=== PATIENT | female | born 1990 | race Caucasian/White ===

== ENCOUNTER 2025-01-21 13:12 | Outpatient (AMB) | payer BC, SELFPAY ==
--- NOTE | 2025-01-21 13:15 | A.OFFPC_ITS ---
Vital Signs 01/21/25 13:19 Height 5 ft 6.61 in Weight 180 lb 8 oz BMI 28.6 BP 110/80 Blood Pressure Location Lt brachial Position Sitting Respiration 12 Pulse 91 Pulse Source Pulse Oximeter Temp 98.3 F Temp Source Oral Pulse Oximetry (%) 98 Oxygen Delivery Method Room Air Intake Visit Reasons: New Patient Intake Note: New patient visit. Allergies No Known Allergies Allergy (Verified 01/21/25 13:15) Medication List - Last Reconciled 01/21/25 by Amaris Pat PA-C No Known Home Meds Tobacco use date assessed: 01/21/25 Dental Screening Dental Screen Date: 01/21/25 Did you have a dental visit in the last 12 months?: Yes Did you have a dental problem in the last 6 months where you did not have access to dental care?: No Was dental information given to patient?: Patient has dentist HPI New Patient HPI Details Patient is a 35-year-old female who presents today to reestablish care/physical exam. She has not been seen in a few years. She has a significant past medical history of generalized anxiety. She does report a few concerns today. Neuro: She states that she has a history of headaches but over the last year or so they have been more persistent. She says that they are almost every day. Denies any vision changes with this but is getting concerned because at times she is getting numbness and tingling in her hands and feet. She states sometimes the paresthesias will happen with headaches and sometimes without this. She states with the numbness and tingling she does get muscle weakness. She states that recently is felt like it has been in her upper extremities. This comes and goes. It will be on and off for a day. She states that she thinks it is possibly anxiety but she is worried about it because her friend just got diagnosed with aggressive ALS. She says that they work together for years and had the same sort of environmental exposures. She does have a 3-month -old baby at home and does carry her baby and her toddler who is 18 months around a lot. She states she wonders if it is related to that and mostly in her head. She is not having any neck pain or low back pain. It does not feel like it radiates down. CV: Blood pressure today in the office is 110/80. She states that yesterday she had an episode of chest pain that came and went throughout the day. States that it felt like a discomfort or tightness. She tells me it got better when she was at the museum with her family. When she was walking around it seemed to be better. She does not have any acid reflux. She states that again she thinks it could be related to anxiety but she is not sure. She did not feel dizzy or lightheaded with this. No nausea, palpitations. Enterprise Sales Person: Up-to-date Family history: Maternal grandmother breast cancer at the age of 50 [facility] Family History (Updated 01/21/25 @ 13:18 by Victoria Lieberman [facility]) Father Anxiety Alcoholism Diabetes Maternal Grandmother Brain aneurysm Other Substance abuse Social History Housing: House Patient Tobacco Use Status: Never used Tobacco e-Cigarette/Vaping Use: Never Used Second Hand Smoke Exposure: No service: No Current occupational status: employed Current occupation: [employer] Current occupational exposures/hazards: No Cognitive needs: No Hearing needs: No Vision needs: No Questionnaire PHQ-9 Over the last 2 weeks, how often have you been bothered by any of the following problems? 1. Little interest or pleasure in doing things: not at all 2. Feeling down, depressed, or hopeless: not at all 3. Trouble falling or staying asleep, or sleeping too much: not at all 4. Feeling tired or having little energy: not at all 5. Poor appetite or overeating: not at all 6. Feeling bad about yourself - or that you are a failure or have let yourself or your family down: not at all 7. Trouble concentrating on things, such as reading the newspaper or watching television: not at all 8. Moving or speaking so slowly that other people could have noticed. Or the opposite - being so fidgety or restless that you have been moving around a lot more than usual: not at all 9. Thoughts that you would be better off or of hurting yourself in some way: not at all Total score: 0 Depression Screening Interpretation: Negative Depression Screening Done: Yes 06961 - PHQ-9 Billing: Yes Source: Developed by Drs. Mika Crawford, Rachna Roberts, Trev Dueñas and colleagues, with an educational angelique from [employer]. Thrive Questionnaire I am a: Patient What is your living situation today?: I have a steady place to live Within the past 12 months, did the food you bought not last and you didn't have the money to get more?: Never true Within the past 12 months, did you worry whether your food would run out before you got money to buy more?: Never true Do you have trouble paying for medicines?: No Do you have trouble getting transportation to medical appointments?: No Do you have trouble paying your heating and electricity bill?: No Do you have trouble taking care of your child, family member or friend?: No Do you have trouble with day-to-day activities such as bathing, preparing meals, shopping, managing finances, etc.?: No Are you currently unemployed and looking for a job?: No Are you interested in more education?: No Please select the resources that you would like help with: None Currently or been in a relationship where the following occur: No concerns reported THRIVE Score: 0 AUDIT C Alcohol Use Questionnaire (AUDIT-C) 1. How often do you have a drink containing alcohol?: 2-4 times a month 2. How many drinks containing alcohol do you have on a typical day when you are drinking?: 5 or 6 3. How often do you have six or more drinks on one occasion?: Less than monthly Total Score: 5 BRNUILDA-7 AMB Questionnaire BRUNILDA-7 Feeling nervous, anxious, or on edge: 1 = Several days Not being able to stop or control worryin = Several days Worrying too much about different things: 0 = Not at all Trouble relaxin = Not at all Being so restless that it is hard to sit still: 0 = Not at all Becoming easily annoyed or irritable: 1 = Several days Feeling afraid as if something awful might happen: 1 = Several days Total BRUNILDA-7 score (0-4 normal; 5-9 mild; 10-14 moderate; 15-21 severe): 4 Source: Developed by Drs. Mika Crawford, Rachna Roberts, Trev Dueñas and colleagues, with an educational angelique from [employer] BRUNILDA-7 Assessment Billing BRUNILDA-7 Assessment Tool: BRUNILDA-7 Assessment 58770 Physical exam (Primary Care) Vital Signs: Last Vital Signs Temp 98.3 F 01/21/25 13:19 Pulse 91 01/21/25 13:19 Resp 12 01/21/25 13:19 BP 110/80 01/21/25 13:19 Pulse Ox 98 01/21/25 13:19 Oxygen Delivery Method Room Air 01/21/25 13:19 BMI result Body Mass Index 28.6 Tobacco/Smoking Status: Tobacco use Status Tobacco use date assessed 01/21/25 01/21/25 13:20 Patient Tobacco Use Status Never used Tobacco 01/21/25 13:20 e-Cigarette/Vaping Use Never Used 01/21/25 13:20 PHQ-9: PHQ-9 Score PHQ-9: Total score 0 01/21/25 13:51 Depression Screening Interpretation: Negative Currently or been in a relationship where the following occur: No concerns reported Const Orientation/consciousness: patient oriented x3 HENMT Ears: hearing grossly normal bilaterally and TM's normal bilaterally General nose exam: No nasal polyps present Face and sinus: Yes sinuses nontender Mouth: Normal oral and palatal mucosa present Eyes Pupils: Equal, round and reactive pupils present EOM: EOMs intact bilaterally Neck Neck: Yes full ROM and Yes no lymphadenopathy Thyroid: Thyroid normal Chest Chest palpation & inspection: normal inspection of the chest Resp Auscultation: clear to auscultation bilaterally Cardio Rate: regular rate Rhythm: regular rhythm Heart sounds: S1 normal heart sound present and S2 normal heart sound present Peripheral pulses: Peripheral pulses 2+ throughout GI Other: Soft, nontender Auscultation: normal bowel sounds Rectal Exam - Female: deferred General: Yes no CVA tenderness Back/Spine/Pelvis Other: Nontender Back: no CVA tenderness Skin General skin exam: no rashes or lesions noted Neuro General: patient oriented x3, gait normal, CN's II-XI intact bilaterally and deep tendon reflexes 2+ bilaterally Cranial nerves: Yes Equal, round and reactive pupils present Motor exam (neuro): 5/5 motor strength present throughout Sensory Exam: double simultaneous stimulation for sensation normal Coordination: [id number] test normal and Romberg test negative Extrem General: Yes normal to inspection and Yes full ROM Psych Affect: normal affect Attitude: cooperative Thought process: Normal thought process present Thought content: Normal thought content present Insight: Good insight present (Psych) Judgement: Good judgement present (Psych) Office Procedures EKG Details: EKG today in office normal sinus rhythm at a rate of 80 beats per minute with nonspecific STT wave abnormalities. No prior study to compare. [id number], Complete Coding Level of Care Code Est Pt Level 3 (51866) Est Pt Prev Care 18-39y(33555) Diagnoses Routine general medical examination at a health care facility Z00.00 Paresthesias R20.2 Daily headache R51.9 Subjective muscle weakness M62.81 Atypical chest pain R07.89 CPT Codes EKG - CPT: 28897-Ljscvrmnfbgclwewl, Complete ([id number]) Additional Codes BRUNILDA-7 Assessment Billing - BRUNILDA-7 Assessment Tool: BRUNILDA-7 Assessment 35862 ([id number]) PHQ-9 - 16966 - PHQ-9 Billing: Yes ([id number]) Assessment & Plan Assessment & Plan (1) Routine general medical examination at a health care facility: Code(s): Z00.00 - Encounter for general adult medical examination without abnormal findings Plan: Health maintenance reviewed Labs ordered (2) Paresthesias: Code(s): R20.2 - Paresthesia of skin Category: Medical Plan: Labs ordered EMG ordered We will follow up pending test results. She does appear neurovascularly intact today. Strength intact. Reflexes are symmetrical. (3) Daily headache: Code(s): R51.9 - Headache, unspecified Category: Medical Plan: MRI ordered. Labs ordered (4) Subjective muscle weakness: Code(s): M62.81 - Muscle weakness (generalized) Category: Medical Plan: As above (5) Atypical chest pain: Code(s): R07.89 - Other chest pain Category: Medical Plan: EKG today in office normal sinus rhythm Chest x-ray ordered Advised short term follow up Orders: Orders Lipid Panel Today R20.2 - Paresthesia of skin, R51.9 - Headache, unspecified UA CC w/rflx Micro + Cult Today R20.2 - Paresthesia of skin, R51.9 - Headache, unspecified, Z13.220 - Encounter for screening for lipoid disorders Vitamin B12 and Folate Today R20.2 - Paresthesia of skin, R51.9 - Headache, uns pecified Magnesium Today R20.2 - Paresthesia of skin, R51.9 - Headache, unspecified IRON PROFILE Today R20.2 - Paresthesia of skin, R51.9 - Headache, unspecified Ferritin Today R20.2 - Paresthesia of skin, R51.9 - Headache, unspecified Lyme IgG/IgM w/reflex to WB Today R20.2 - Paresthesia of skin, R51.9 - Headache, unspecified NE nerve conduction velocity Today M62.81 - Muscle weakness (generalized), R20.2 - Paresthesia of skin NE electromyogram (EMG) Today M62.81 - Muscle weakness (generalized), R20.2 - Paresthesia of skin Complete Blood Count Auto Diff Today R20.2 - Paresthesia of skin, R51.9 - Headache, unspecified Comprehensive [place]. Panel Fast Today R20.2 - Paresthesia of skin, R51.9 - Headache, unspecified Hemoglobin A1c Today R20.2 - Paresthesia of skin, R51.9 - Headache, unspecified, R73.01 - Impaired fasting glucose TSH reflex Free T4 Today R20.2 - Paresthesia of skin, R51.9 - Headache, unspecified Microalbumin, Random (w Creat) Today R20.2 - Paresthesia of skin, R51.9 - Headache, unspecified Vitamin D 25-OH Total Today R20.2 - Paresthesia of skin, R51.9 - Headache, unspecified Erythrocyte Sedimentation Rate Today R20.2 - Paresthesia of skin, R51.9 - Headache, unspecified MR head/brain wo con Today M62.81 - Muscle weakness (generalized), R20.2 - Paresthesia of skin, R51.9 - Headache, unspecified AMB EKG-In Office Today R07.89 - Other chest pain XR chest 2V Today R07.89 - Other chest pain Referrals Dermatology Referral L98.9 - Disorder of the skin and subcutaneous tissue, unspecified
[2025-01-21 13:19] VITALS: BP 110/80; PULSE 91; RESP 12; TEMP 36.8; O2SAT 98; BMI 28.6
== END 2025-01-21 14:20 | disposition home or self-care (01) ==
LOC: HO.HMCFM 13:13
PROVIDERS: PCP Physician Assistant; Visit Provider Physician Assistant
DX: Z00.00 Encounter for general adult medical examination without abnormal findings (principal); R20.2 Paresthesia of skin; R51.9 Headache, unspecified; M62.81 Muscle weakness (generalized); R07.89 Other chest pain

== ENCOUNTER → 2025-01-21 13:12 | Outpatient (BNVA) | payer BC, SELFPAY | PROVIDERS: PCP Physician Assistant; Visit Provider Physician Assistant | DX: Z00.00 Encounter for general adult medical examination without abnormal findings (principal); F41.1 Generalized anxiety disorder; R20.2 Paresthesia of skin; R51.9 Headache, unspecified; M62.81 Muscle weakness (generalized); R07.89 Other chest pain | CPT/HCPCS: 93005; 96127 ==

== ENCOUNTER 2025-02-04 07:07 | Outpatient (REF) | payer BC, SELFPAY ==
[2025-02-04 10:31] LABS: MANUAL DIFF FLAG NO
[2025-02-04 10:37] LABS: Hematocrit 37.9 % (37.0-47.0); Hemoglobin 12.2 g/dl (12.0-16.0); Imm Gran Abs Auto 0.02 X10*3/uL (0.00-0.03); Imm Gran Pct Auto 0.3 % (0.0-0.4); Lymphocytes Absolute Auto 1.6 X10*3/uL (1.2-4.9); Mean Corpuscular HGB Conc 32.2 g/dl (31.0-35.0); Mean Corpuscular Hemoglobin 26.1 pg (27.0-33.0); Mean Corpuscular Volume 81.2 fL (80.0-98.0); NRBC Abs Auto 0.000 X10*3/uL (0.0-0.012); NRBC Pct Auto 0.0 /100WBC (0.0-0.2); Platelet Count 304 X10*3/uL (160-400); Red Blood Count 4.67 X10*6/uL (4.20-5.50); White Blood Count 6.0 X10*3/uL (4.8-10.8)
[2025-02-04 10:56] LABS: Hemoglobin A1C 94.8559 umol/L; Total Hemoglobin (HGBA1C) 3163.8866 umol/L
[2025-02-04 10:57] LABS: Appearance Urine Clear; Glucose Urine UA Negative (Negative); PH 7.0 (5.0-9.0); Specific Gravity - Urine <= 1.005 (1.005-1.025); UMIC TRIGGER UACC YES
[2025-02-04 11:21] LABS: Alanine Aminotransferase 30 U/L (0-31); Albumin Level 4.3 g/dL (3.5-5.0); Alkaline Phosphatase 69 U/L (39-117); Anion Gap 11 (12-20); Aspartate Amino Transferase 40 U/L (5-31); Blood Urea Nitrogen 9 mg/dL (9-16); Calcium 8.6 mg/dL (8.4-10.2); Carbon Dioxide 25 mmol/L (22-29); Chloride 105 mmol/L (96-108); Cholesterol 176 mg/dL (<200); Estimated Glomerular Filt Rate > 60; Ferritin 7 ng/mL (10-122); HDL Cholesterol 74 mg/dL (>40); Iron 33 mcg/dL (30-160); Magnesium 2.1 mg/dL (1.6-2.6); Percent Iron Saturation 10 % (15-50); Potassium 4.2 mmol/L (3.3-5.1); Sodium 137 mmol/L (135-145); Total Iron Binding Capacity 338 mcg/dL (228-428); Total Protein 7.1 g/dL (6.5-8.0); Triglycerides 49 mg/dL (<150); Unsaturated Iron Binding 305 ug/dL
[2025-02-04 11:34] LABS: Folate 9.0 ng/mL (> or = 4.0); Vitamin B12 891 pg/mL (200-900)
[2025-02-05 09:34] LABS: Lyme Abs Screen <0.90 index
== END 2025-02-04 07:08 | disposition home or self-care (01) ==
LOC: HO.HMGCLDS 07:07
PROVIDERS: PCP Physician Assistant; Visit Provider Physician Assistant
DX: R20.2 Paresthesia of skin (principal); R51.9 Headache, unspecified; R73.01 Impaired fasting glucose
CPT/HCPCS: 36415; 80053; 80061; 81001; 82043; 82306; 82570; 82607; 82728; 82746; 83036; 83540; 83735; 84443; 85025; 85652; 86617; 86618

== ENCOUNTER 2025-02-21 09:03 | Outpatient (REF) | payer BC, SELFPAY | END 2025-02-21 09:04 | disposition home or self-care (01) | LOC: HO.MRI 09:03 | PROVIDERS: PCP Physician Assistant; Visit Provider Physician Assistant | DX: Z13.89 Encounter for screening for other disorder (principal) ==

== ENCOUNTER 2025-03-03 09:42 | Outpatient (REF) | payer BC, SELFPAY ==
--- NOTE | 2025-03-03 09:45 | EMG_ITS ---
Bilateral median and ulnar motor and sensory nerve conduction studies were performed. Bilateral radial sensory studies were performed and paraspinal muscles were tested with a needle. Bilateral median and lateral antecubital brachial sensory studies were also performed. 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 Otherwise no significant abnormality noted on this study. MTDD
== END 2025-03-03 09:43 | disposition home or self-care (01) ==
LOC: HO.NEURO 09:42
PROVIDERS: PCP Physician Assistant; Visit Provider Physician Assistant
DX: M62.81 Muscle weakness (generalized) (principal); R20.2 Paresthesia of skin
CPT/HCPCS: 95886; 95913

== ENCOUNTER → 2025-03-03 09:45 | Outpatient (BNV) | payer BC, SELFPAY | PROVIDERS: PCP Physician Assistant; Visit Provider Psychiatry & Neurology Neurology | DX: G56.01 Carpal tunnel syndrome, right upper limb (principal) | CPT/HCPCS: 95886; 95913 ==

== ENCOUNTER 2025-04-07 08:51 | Outpatient (REF) | payer BC, SELFPAY ==
--- NOTE | 2025-04-07 08:53 | EMG_ITS ---
Chief complaint: paresthesia of both feet Reason for referral: NCV/ EMG Referred by: NYSAIA Espinoza Procedure done: Nerve conduction study and EMG was performed on the bilateral lower extremities Bilateral tibial and peroneal motor and sensory studies were performed bilateral superficial peroneal and sural sensory studies were performed tibial H reflexes were obtained and EMG needle examination was performed. 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
== END 2025-04-07 08:52 | disposition home or self-care (01) ==
LOC: HO.NEURO 08:51
PROVIDERS: PCP Physician Assistant; Visit Provider Physician Assistant
DX: R20.2 Paresthesia of skin (principal); M62.81 Muscle weakness (generalized)
CPT/HCPCS: 95886; 95913

== ENCOUNTER → 2025-04-07 08:53 | Outpatient (BNV) | payer BC, SELFPAY | PROVIDERS: PCP Physician Assistant; Visit Provider Psychiatry & Neurology Neurology | DX: R20.2 Paresthesia of skin (principal) | CPT/HCPCS: 95886; 95912 ==